=== PATIENT | female | born 2000 | race Caucasian/White ===

== ENCOUNTER 2020-05-24 05:32 | Emergency (ER) | payer BC, SELFPAY ==
[2020-05-24 05:37] VITALS: BP 115/50; PULSE 90; RESP 16; TEMP 36.8; O2SAT 98; BMI 21.1
--- NOTE | 2020-05-24 05:52 | ED_ITS ---
HPI - Eye Problem General Chief complaint: Eye Problems Stated complaint: EYE INFECTION Time Seen by Provider: 05/24/20 05:49 Source: patient Mode of arrival: ambulatory Limitations: no limitations History of Present Illness HPI Narrative: patient comes to emergency room complaining of left-sided eye pain. Patient states 2 nights ago she slept with her contacts, the next day her I was very dry, when she tried calling her contact lenses out, it felt like she had a small pinch in her left eye. Patient states that the pain has gradually been getting worse. Patient removed the contact lenses but the pain persisted. patient states that her vision remains within normal limits bilaterally MD chief complaint: eye pain, eye redness and eye injury Onset (ago): day(s) Onset description: gradual Duration: constant Location: left eye Eye Symptoms: burning, redness, pain, foreign body sensation, itching and photophobia Place: home Related Data Previous Rx's Medication Instructions Recorded ketorolac 1 drp OPHTHALMIC (EYE) QID #3 ml 05/24/20 ofloxacin 2 drp OPHTHALMIC (EYE) Q4H #10 ml 05/24/20 Allergies Allergy/AdvReac Type Severity Reaction Status Date / Time No Known Allergies Allergy Unverified 04/25/20 19:35 [No Known Allergies*] Review of Systems Review of Systems: Constitutional : No Weight loss, No Fever, No Chills, No Night Sweats, No Fatigue, No Malaise ENT/Mouth : No Hearing loss, No Ear Pain, No Nasal Congestion, No Sinus Pain, No Hoarseness, No sore throat, No Rhinorrhea, No Swallowing Difficulty Eyes: complaining of eye pain, swelling, redness, foreign body sensation, No Discharge, No Vision Changes Cardiovascular : No Chest Pain, No SOB, No Dyspnea on Exertion, No Orthopnea, No Edema, No Palpitations Respiratory : No Cough, No Sputum, No Wheezing, No Smoke Exposure, No Dyspnea Gastrointestinal : No Nausea, No Vomiting, No Diarrhea, No Constipation, No abdominal Pain, No Hematochezia, No Melena Genitourinary : no irregular bleeding, No Dysuria, No Urinary Frequency, No Hematuria, No Urinary Incontinence, No Urgency, No Flank Pain, No Urinary Flow Changes, No Hesitancy Musculoskeletal : No joint pain, No Myalgias, No Joint Swelling Skin : No Skin Lesions, No rash Neuro : No Weakness, No Numbness, No Paresthesias, No Loss of Consciousness, No Dizziness, No Headache Psych : No Anxiety/Panic, No Depression, No SI/HI/AH/VH, No Social Issues, Heme/Lymph: No Bruising, No Bleeding,No Lymphadenopathy Endocrine : No Polyuria, No Polydipsia, No Temperature Intolerance [facility] Social History Social History Advance Directives: No Advance Directives Information Provided: No Physical Exam Vital Signs: Vital Signs: Vital Signs Temp Pulse Resp BP Pulse Ox 05/24/20 05:37 98.3 F 90 16 115/50 L 98 Body Mass Index 21.1 Appearance: Alert. Oriented X3. No acute distress. Eyes: Pupils equal, round and reactive to light. left eye has conjunctiva injection, fluorescent stain test reveals a corneal abrasion in the middle of the eye. ENT: Pharynx normal. Neck: Normal inspection. Neck supple. No lymph nodes noted. No crepitus CVS: Normal heart rate and rhythm. Pulses normal. Normal S1 and S2 Respiratory: No respiratory distress. Breath sounds normal. No Wheezing. No rales Abdomen: Soft and nontender. No rigidity. No distention. good BS x4 Skin: Skin warm and dry. Normal skin color. Normal skin turgor. Extremities: No lower extremity edema. No lower extremity edema. No Lacerations. No Rash Neuro: Oriented X 3. No motor deficit. No sensory deficit. Moving all extermities. No slurred speech. MDM - Eye Problem MDM Narrative Medical decision making narrative: I discussed the physical exam with the patient, she has a corneal abrasion, patient is alert contact lens wear, instructed not to wear her contact lenses until she is cleared by Ophthalmology. Differential Diagnosis Differential diagnosis: Likely corneal abrasion, conjunctivitis and acute iritis Medical Records Attestation: I reviewed the patient's medical records. Discharge Plan Discharge Clinical Impression: Corneal abrasion Qualifiers: Encounter type: initial encounter Laterality: left Qualified Code(s): S05.02XA - Injury of conjunctiva and corneal abrasion without foreign body, left eye, initial encounter Patient Disposition: Home, Self-Care Instructions: Corneal Abrasion (ED) Additional Instructions: do not use contact lenses until you are cleared by Ophthalmology or your primary care physician. Please follow-up with your primary care physician tomorrow. If you have any worsening or new symptoms, please return to the emergency room or call 911 Prescriptions: New ofloxacin 0.3 % drops 2 drp ophthalmic (eye) Q4H Qty: 10 RF: 0 ketorolac 0.5 % drops 1 drp ophthalmic (eye) QID Qty: 3 RF: 0
[2020-05-24] MEDS: Tetracaine HCl/PF 0.5% Oph Sol 4 ML DROPS 3 DROP EYE-LEFT (06:01)
[2020-05-24] MEDS: Fluorescein Sodium STRIP 1 STRIP EYE-LEFT (06:02)
== END 2020-05-24 06:20 | disposition home or self-care (01) ==
PROVIDERS: Emergency Provider Emergency Medicine
DX: H18.822 Corneal disorder due to contact lens, left eye (principal); Z79.899 Other long term (current) drug therapy
CPT/HCPCS: 99283; 99284

== ENCOUNTER 2020-08-21 21:49 | Emergency (ER) | payer BC, SELFPAY ==
[2020-08-21 21:53] VITALS: BP 114/49; PULSE 81; RESP 16; TEMP 36.8; O2SAT 98; BMI 20.1
[2020-08-21 22:12] LABS: MANUAL DIFF FLAG NO
[2020-08-21 22:13] LABS: Basophils Absolute Auto 0.1 X10*3/uL (0.0-0.2); Basophils Percent Auto 0.8 % (0-2); Eosinophils Absolute Auto 0.3 X10*3/uL (0.0-0.4); Eosinophils Percent Auto 3.9 % (0-4); Hemoglobin 11.7 g/dl (12.0-16.0); Imm Gran Abs Auto 0.01 X10*3/uL (0.00-0.03); Imm Gran Pct Auto 0.1 % (0.0-0.4); Lymphocytes Absolute Auto 4.1 X10*3/uL (1.2-4.9); Lymphocytes Percent Auto 46.5 % (20-40); Mean Corpuscular HGB Conc 33.4 g/dl (31.0-35.0); Mean Corpuscular Volume 86.6 fL (80-98); Mean Platelet Volume 10.6 fL (9.4-12.3); Monocytes Absolute Auto 0.8 X10*3/uL (0.1-1.2); Monocytes Percent Auto 9.6 % (2-11); Neutrophils Absolute Auto 3.4 X10*3/uL (2.0-8.3); Neutrophils Percent Auto 39.1 % (45-73); Platelet Count 249 X10*3/uL (160-400); Red Blood Count 4.04 X10*6/uL (4.20-5.50); Red Cell Distribution Width 12.6 % (11.0-16.0); White Blood Count 8.8 X10*3/uL (4.8-10.8)
[2020-08-21 22:35] LABS: Alanine Aminotransferase 12 U/L (0-31); Albumin Level 4.6 g/dL (3.5-5.0); Alkaline Phosphatase 50 U/L (39-117); Anion Gap 13 (12-20); Aspartate Amino Transferase 22 U/L (5-31); Bilirubin Total 0.3 mg/dL (0.0-1.0); Blood Urea Nitrogen 13 mg/dL (9-16); Calcium 9.2 mg/dL (8.4-10.2); Carbon Dioxide 25 mmol/L (22-29); Chloride 106 mmol/L (96-108); Creatinine Clr Calc Pharmacy 105.5; Estimated Glomerular Filt Rate > 60; Glucose Random 87 mg/dL (60-115); Potassium 3.7 mmol/l (3.3-5.1); Sodium 140 mmol/L (135-145); Total Protein 7.3 g/dL (6.5-8.0)
--- NOTE | 2020-08-22 01:04 | ED_ITS ---
HPI - Skin/Abscess/Foreign Bdy General Chief complaint: Skin/Abscess/Foreign Body Stated complaint: infection? Time Seen by Provider: 08/22/20 01:01 Source: patient Mode of arrival: ambulatory Limitations: no limitations History of Present Illness MD complaint: rash Onset (ago): day(s) (few) Tetanus up to date: yes Location: back Severity: mild Quality: burning Pain Consistency: constant Relieving factors: none Exacerbating factors: none Context: other (possible reaction to a bra then area opened and increased redness) Associated symptoms: denies other symptoms Treatments prior to arrival: none Related Data Previous Rx's Medication Instructions Recorded ketorolac 1 drp OPHTHALMIC (EYE) QID #3 ml 05/24/20 ofloxacin 2 drp OPHTHALMIC (EYE) Q4H #10 ml 05/24/20 cephalexin 500 mg PO BID 7 Days #14 cap 08/22/20 mupirocin 1 appl TOPICAL BID 7 Days #15 g 08/22/20 Allergies Allergy/AdvReac Type Severity Reaction Status Date / Time No Known Allergies Allergy Verified 08/21/20 21:51 [No Known Allergies*] Review of Systems Review of Systems: Constitutional : No Fever, No Chills ENT/Mouth : No sore throat, No Rhinorrhea Eyes: No Eye Pain, No Swelling, No Redness Cardiovascular : No Chest Pain, No SOB Respiratory : No Cough, No Sputum Gastrointestinal : No Nausea, No Vomiting, No Diarrhea, No abdominal Pain Genitourinary : No Dysuria, No Hematuria Musculoskeletal : No joint pain, No Myalgias, No Joint Swelling Skin : No Skin Lesions, positive skin rash Neuro : No Weakness, No Numbness, No Headache Psych : No Anxiety, No Depression Heme/Lymph: No Bruising, No Bleeding,No Lymphadenopathy Endocrine : No Polyuria, No Polydipsia All other systems reviewed and are negative PMFSH Past Medical History Attestation statement: The following information was validated with the patient. Medical History No known health problems Social History Social History Alcohol intake: never Smoking Status: Never smoker Advance Directives: No Advance Directives Information Provided: No Physical Exam Vital Signs: Vital Signs: Last Vital Signs Temp 98.3 F 08/21/20 21:53 Pulse 81 08/21/20 21:53 Resp 16 08/21/20 21:53 BP 114/49 L 08/21/20 21:53 Pulse Ox 98 08/21/20 21:53 Body Mass Index 20.1 Appearance: Alert. Oriented X3. No acute distress. Eyes: Pupils equal, round and reactive to light. ENT: Pharynx normal. Neck: Normal inspection. Neck supple. CVS: Normal heart rate and rhythm. Pulses normal. Respiratory: No respiratory distress. Breath sounds normal. Abdomen: Soft and nontender. Back: R scapula erythema mild erythema and warmth 3cm - scabbed area, no fluctuance or purulence, fading small red raised bumps on that region as well Skin: Skin warm and dry. Normal skin color. Normal skin turgor. Extremities: No lower extremity edema. No calf ttp Neuro: Oriented X 3. No motor deficit. No sensory deficit. MDM - Skin/Abscess/Foreign Bdy MDM Narrative Medical decision making narrative: 20 yo female with likely recent contact dermatitis that then scabbed over and now has mild cellulitis no systemic symptoms will treat with mupirocin and cephalexin - given precautions to return Lab Data Result diagrams: 08/21/20 22:06 08/21/20 22:06 Labs: Lab Results 08/21/20 08/21/20 Range/Units 22:06 22:06 WBC 8.8 (4.8-10.8) X10*3/uL RBC 4.04 L (4.20-5.50) X10*6/uL Hgb 11.7 L (12.0-16.0) g/dl Hct 35.0 L (37-47) % MCV 86.6 (80-98) fL MCH 29.0 (27.0-33.0) pg MCHC 33.4 (31.0-35.0) g/dl RDW 12.6 (11.0-16.0) % Plt Count 249 (160-400) X10*3/uL MPV 10.6 (9.4-12.3) fL Immature Gran % (Auto) 0.1 (0.0-0.4) % Neut % (Auto) 39.1 L (45-73) % Lymph % (Auto) 46.5 H (20-40) % [place] % (Auto) 9.6 (2-11) % Eos % (Auto) 3.9 (0-4) % Baso % (Auto) 0.8 (0-2) % Lymph # (Auto) 4.1 (1.2-4.9) X10*3/uL [place] # (Auto) 0.8 (0.1-1.2) X10*3/uL Eos # (Auto) 0.3 (0.0-0.4) X10*3/uL Baso # (Auto) 0.1 (0.0-0.2) X10*3/uL Abs Immat Gran (auto) 0.01 (0.00-0.03) X10*3/uL Absolute Neuts (auto) 3.4 (2.0-8.3) X10*3/uL Absolute Nucleated RBC 0.000 (0.0-0.012) X10*3/uL Nucleated RBC % (auto) 0.0 (0.0-0.2) /100WBC Sodium 140 (135-145) mmol/L Potassium 3.7 (3.3-5.1) mmol/l Chloride 106 (96-108) mmol/L Carbon Dioxide 25 (22-29) mmol/L Anion Gap 13 (12-20) BUN 13 (9-16) mg/dL Creatinine 0.66 (0.5-1.4) mg/dL Estim Creat Clear Calc 105.5 Estimated GFR > 60 Random Glucose 87 (60-115) mg/dL Calcium 9.2 (8.4-10.2) mg/dL Total Bilirubin 0.3 (0.0-1.0) mg/dL AST 22 (5-31) U/L ALT 12 (0-31) U/L Alkaline Phosphatase 50 (39-117) U/L Total Protein 7.3 (6.5-8.0) g/dL Albumin 4.6 (3.5-5.0) g/dL Discharge Plan Discharge Clinical Impression: Cellulitis Qualifiers: Site of cellulitis: trunk Site of cellulitis of trunk: back Qualified Code(s): L03.312 - Cellulitis of back [any part except buttock] Patient Disposition: Home, Self-Care Instructions: Cellulitis (ED) Additional Instructions: return to ED for any worsening symptoms or concerns Prescriptions: New mupirocin 2 % ointment 1 appl topical BID 7 Days Qty: 15 RF: 0 cephalexin 500 mg capsule 500 mg PO BID 7 Days Qty: 14 RF: 0 No Action ofloxacin 0.3 % drops 2 drp ophthalmic (eye) Q4H Qty: 10 RF: 0 ketorolac 0.5 % drops 1 drp ophthalmic (eye) QID Qty: 3 RF: 0
[2020-08-22] MEDS: cephALEXin 500 MG CAPSULE PO (01:16)
[2020-08-22 01:20] VITALS: BP 118/64; PULSE 64; RESP 16; O2SAT 98
== END 2020-08-22 01:21 | disposition home or self-care (01) ==
LOC: HO.ED 08-22 01:11
PROVIDERS: Emergency Provider Emergency Medicine
DX: L03.312 Cellulitis of back [any part except buttock and flank] (principal); Z79.899 Other long term (current) drug therapy
CPT/HCPCS: 36415; 80053; 85025; 99283; 99284

== ENCOUNTER 2020-10-09 09:48 | Outpatient (REF) | payer BC, SELFPAY ==
[2020-10-09 10:23] LABS: UPreg QC Valid YES; Urine Pregnancy POSITIVE (NEGATIVE)
== END 2020-10-09 09:49 | disposition home or self-care (01) ==
LOC: HO.LAB 09:48
PROVIDERS: PCP Internal Medicine; Visit Provider Internal Medicine
DX: N91.2 Amenorrhea, unspecified (principal)
CPT/HCPCS: 81025

== ENCOUNTER → 2020-10-16 09:21 | Outpatient (BNVA) | payer BC, SELFPAY | PROVIDERS: PCP Internal Medicine; Visit Provider Advanced Practice Midwife | DX: Z32.01 Encounter for pregnancy test, result positive (principal) | CPT/HCPCS: 81025 ==

== ENCOUNTER 2023-08-25 08:36 | Outpatient (AMB) | payer OTHER, SELFPAY ==
[2023-08-25 08:41] VITALS: BP 110/70; PULSE 99; O2SAT 70; BMI 26.2
--- NOTE | 2023-08-25 08:41 | A.OFFPC_ITS ---
Vital Signs 08/25/23 08:41 Height 5 ft 2 in Weight 143 lb BMI 26.2 BP 110/70 Blood Pressure Location Lt brachial Position Sitting Pulse 99 Pulse Source Pulse Oximeter Pulse Oximetry (%) 70 L Oxygen Delivery Method Room Air Intake Visit Reasons: Hand swollen/ referral for specialist Staffing And Scheduling Coordinator Required: No Grocery Cashier: Not Required per policy Accompanied by: Self / Same As Patient Allergies No Known Allergies [No Known Allergies*] Allergy (Verified 08/25/23 08:42) Medication List - Last Reconciled 08/25/23 by Nathaniel Sun MD No Known Home Meds Tobacco use date assessed: 08/25/23 Dental Screening Dental Screen Date: 08/25/23 Did you have a dental visit in the last 12 months?: Yes Did you have a dental problem in the last 6 months where you did not have access to dental care?: No Was dental information given to patient?: Patient has dentist HPI Hand swollen/ referral for specialist HPI Details right hand pain and remote history of trauma [facility] Medical History (Updated 02/10/23 @ 16:41 by Himanshu Kaufman MD) Anxiety No known health problems Family History Mother No problems noted. Father No problems noted. Social History Housing: Condominium Alcohol intake: current Alcohol intake frequency: holidays/special occasions only Patient Tobacco Use Status: Never used Tobacco e-Cigarette/Vaping Use: Never Used Second Hand Smoke Exposure: No service: No Current occupational status: employed Cognitive needs: No Hearing needs: No Vision needs: Yes Questionnaire PHQ-9 Over the last 2 weeks, how often have you been bothered by any of the following problems? 1. Little interest or pleasure in doing things: not at all 2. Feeling down, depressed, or hopeless: not at all 3. Trouble falling or staying asleep, or sleeping too much: not at all 4. Feeling tired or having little energy: not at all 5. Poor appetite or overeating: not at all 6. Feeling bad about yourself - or that you are a failure or have let yourself or your family down: not at all 7. Trouble concentrating on things, such as reading the newspaper or watching television: not at all 8. Moving or speaking so slowly that other people could have noticed. Or the opposite - being so fidgety or restless that you have been moving around a lot more than usual: not at all 9. Thoughts that you would be better off or of hurting yourself in some way: not at all Total score: 0 Depression Screening Interpretation: Negative Depression Screening Done: Yes 43660 - PHQ-9 Billing: Yes Source: Developed by Drs. Aric Jhaveri, Blossom Wilson, Rock Sandoval and colleagues, with an educational lety from [employer]. Thrive Questionnaire Date Thrive assessed: 08/25/23 I am a: Patient What is your living situation today?: I have a steady place to live Within the past 12 months, did the food you bought not last and you didn't have the money to get more?: Never true Within the past 12 months, did you worry whether your food would run out before you got money to buy more?: Never true Do you have trouble paying for medicines?: No Do you have trouble getting transportation to medical appointments?: No Do you have trouble paying your heating and electricity bill?: No Do you have trouble taking care of your child, family member or friend?: No Do you have trouble with day-to-day activities such as bathing, preparing meals, shopping, managing finances, etc.?: No Are you currently unemployed and looking for a job?: No Are you interested in more education?: No Please select the resources that you would like help with: None AUDIT C Alcohol Use Questionnaire (AUDIT-C) 1. How often do you have a drink containing alcohol?: Never Total Score: 0 LEO-7 AMB Questionnaire LEO-7 Date LEO - 7 assessed: 08/25/23 Feeling nervous, anxious, or on edge: 1 = Several days Not being able to stop or control worryin = Several days Worrying too much about different things: 0 = Not at all Trouble relaxin = Not at all Being so restless that it is hard to sit still: 0 = Not at all Becoming easily annoyed or irritable: 0 = Not at all Feeling afraid as if something awful might happen: 0 = Not at all Total LEO-7 score (0-4 normal; 5-9 mild; 10-14 moderate; 15-21 severe): 2 Source: Developed by Drs. Aric Jhaveri, Blossom Wilson, Rock Sandoval and colleagues, with an educational lety from [employer]. LEO-7 Assessment Billing LEO-7 Assessment Tool: LEO-7 Assessment 32042 Review of Systems Const Denies chills, Denies headache(s) and Denies weight loss ENT Denies headache(s) Card Denies chest pain, Denies syncope, Denies irregular heart rhythm and Denies dyspnea Resp Denies chest congestion, Denies cough and Denies dyspnea GI Denies abdominal pain, Denies change in stool character, Denies nausea and Denies vomiting Musc Denies deformity and Denies joint swelling Neuro Denies syncope and Denies headache(s) Physical exam (Primary Care) Vital Signs: Last Vital Signs Pulse 99 08/25/23 08:41 BP 110/70 08/25/23 08:41 Pulse Ox 70 L 08/25/23 08:41 Oxygen Delivery Method Room Air 08/25/23 08:41 BMI result Body Mass Index 26.2 Tobacco/Smoking Status: Tobacco use Status Tobacco use date assessed 08/25/23 08/25/23 08:47 Patient Tobacco Use Status Never used Tobacco 08/25/23 08:47 e-Cigarette/Vaping Use Never Used 08/25/23 08:47 PHQ-9: PHQ-9 Score PHQ-9: Total score 0 08/25/23 08:47 Depression Screening Interpretation: Negative Thrive Assessment: Date of Thrive Assessment Date Thrive assessed 08/25/23 08/25/23 08:47 Const General: cooperative, comfortable, no acute distress and alert Neck Neck: Yes no lymphadenopathy Thyroid: Thyroid normal Resp Effort & Inspection: normal respiratory effort Auscultation: clear to auscultation bilaterally Percussion: percussion normal Cardio Jugular venous distension: no JVD Palpation: normal PMI Rate: regular rate Rhythm: regular rhythm Heart sounds: S1 normal heart sound present and S2 normal heart sound present GI Inspection: Yes normal to inspection Palpation (GI): No hepatosplenomegaly present Skin General skin exam: no rashes or lesions noted Extrem General: Yes no clubbing, cyanosis or edema Assessment and Plan Assessment & Plan (1) Hand pain: Code(s): M79.643 - Pain in unspecified hand Plan: xr Orders: Orders Comprehensive [place]. Panel Fast Today N28.9 - Disorder of kidney and ureter, unspecified, Z32.01 - Encounter for test, result positive Complete Blood Count Auto Diff Today D64.9 - Anemia, unspecified, Z32.01 - Encounter for test, result positive Thyroid Stimulating Hormone Today E03.9 - Hypothyroidism, unspecified, Z32.01 - Encounter for test, result positive Vitamin D 25-OH Total Today Z13.9 - Encounter for screening, unspecified, Z32.01 - Encounter for test, result positive XR hand RT 2V Today M79.643 - Pain in unspecified hand, Z32.01 - Encounter for test, result positive Lipid Panel Today E78.5 - Hyperlipidemia, unspecified, Z32.01 - Encounter for test, result positive Referrals Orthopedics Referral M79.643 - Pain in unspecified hand Coding Level of Care Code Est Pt Level 3 (34463) Diagnoses Hand pain M79.643 Additional Codes LEO-7 Assessment Billing - LEO-7 Assessment Tool: LEO-7 Assessment 21762 ([id number])
== END 2023-08-25 09:12 | disposition home or self-care (01) ==
PROVIDERS: PCP Internal Medicine; Visit Provider Internal Medicine
DX: M79.643 Pain in unspecified hand (principal)
CPT/HCPCS: 99213

== ENCOUNTER 2023-10-06 10:47 | Outpatient (AMB) | payer OTHER, SELFPAY ==
[2023-10-06 10:50] VITALS: BMI 26.2
--- NOTE | 2023-10-06 10:50 | A.OFFVIS_ITS ---
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 Mainly on her dorsum MCP aspect of her ring and pinky. She explains she has discoloration, bruising with use of hand. Worse with cold weather. Hx of severed tendon in ring finger about 4 years ago after punching a window. Seen last with her PCP who referred patient to Orthopedics specialist for further evaluation. 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 She also complains of occasional discoloration and bruising in this area. She denies any recent injury. She also complains of numbness and tingling in the small and ring fingers that is happening just about every day, intermittent but daily. Her hand was not painful today in clinic. However she says her hand is in pain 80% of the time. She was somewhat anxious and tearful today when discussing her symptoms. She says she has a hx of severed tendons over her right 4th MCP joint, after she punched a window in ~2019. She denies proceeding with surgery to repair this. 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 [facility] Medical History (Updated 10/06/23 @ 11:30 by Merritt Kaba) Anxiety No known health problems Family History Mother No problems noted. Father No problems noted. Social History (Updated 10/06/23 @ 10:[address] 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 Cognitive needs: No Hearing needs: No Vision needs: Yes Review of Systems Const All systems reviewed & are unremarkable except as noted in HPI and below Physical Exam Vital Signs: BMI result Body Mass Index 26.2 Const General: cooperative, healthy appearing and no acute distress Orientation/consciousness: patient oriented x3 HEENT Head: Yes normocephalic and Yes atraumatic Eyes EOM: EOMs intact bilaterally Resp Effort & Inspection: normal respiratory effort and able to speak in complete sentences Cardio Jugular venous distension: no JVD Skin General skin exam: turgor normal Rashes: no rashes Neuro General: patient oriented x3 Extrem Other: Evaluation of Right Upper Extremity: The patient is alert, oriented, and in no acute distress She became tearful when I told her that I did not see anything worrisome at this time, or anything that needed surgery. Neuro: Median, Ulnar, Radial nerves motor and sensory intact and sensation is normal to the tips of all digits No thenar or intrinsic wasting. Good finger cross and APB muscle belly firing. Vascular: Cap refill brisk Regarding her right hand, she has a well-healed scar over the dorsal aspect of the right 4th MCP joint. The scar is well healed with no erythema swelling or other issues. She shows me how when she extends the fingers of her right hand she has some mild swelling on either side of the 4th metacarpal head. To me this looks like a little bit of subcutaneous fat that has just a little more prominent on either side. There is no warmth or erythema. There are no cystic masses. The area is completely nontender today. She can bring all of her fingers close to a fist, and at this point the slightly puffy areas are completely not visible. Also when she brings her fingers close to a fist the extensor mechanism stays centralized with no subluxation. All motion is completely painless. No pain with longitudinal loading. When she brings all of her fingers back into extension her ring finger PIP joint initially is lacking about 10 degrees from full extension. However, when I ask her to continue to fully extend the digit she is able to actively fully extend the ring finger PIP joint. Radiographs: 3 views of the right hand were taken and viewed by me today in clinic. They show no fractures, dislocations, or arthritic changes Psych Appearance: grossly normal Affect: normal affect Attitude: cooperative Assessment & Plan Assessment & Plan (1) Numbness of right hand: Code(s): R20.0 - Anesthesia of skin (2) Right hand pain: Code(s): M79.641 - Pain in right hand (3) Anxiety: Comment: 40 min reviewing chart evaluating patient and documenting Code(s): F41.9 - Anxiety disorder, unspecified Plan Assessment & Plan: 1. Right hand pain Dorsal 4th MCP joint Etiology unclear & radiographs unremarkable Full painless active range of motion, and no pain or tenderness today in clinic She was tearful and disappointed that I did not have an answer why she gets her pain She had no pain, swelling, or erythema today, and full active ROM She left considering seeking a second opinion for this 2. Right hand numbness In the ulnar nerve distribution Symptoms intermittent, but daily I ordered a NCS to assess for peripheral nerve compression She will follow up when completed for review Please note that greater than 30 minutes was spent with this patient going over the history, evaluating the patient and radiographs, formulating possible treatment options, discussing them with the patient, and documenting the visit. Scribed for Minda Sullivan MD by Merritt Kaba, rn medical surgical, on 10/06/23 at 11:15 AM, EST. Orders: Orders XR hand RT min 3V Today M79.641 - Pain in right hand NE nerve conduction velocity Today R20.0 - Anesthesia of skin, R20.2 - Paresthesia of skin Coding Level of Care Code New Pt Level 3 (55490) Diagnoses Numbness of right hand R20.0 Right hand pain M79.641 Anxiety F41.9
== END 2023-10-06 11:51 | disposition home or self-care (01) ==
PROVIDERS: PCP Internal Medicine; Visit Provider Orthopaedic Surgery
DX: M79.641 Pain in right hand (principal); R20.0 Anesthesia of skin
CPT/HCPCS: 99203

== ENCOUNTER 2023-10-06 10:47 | Outpatient (REF) | payer OTHER, SELFPAY ==
--- NOTE | ~2023-10-06 | XR_ITS ---
EXAMINATION: XR HAND, RIGHT CLINICAL INFORMATION: Right hand COMPARISON: None available. TECHNIQUE: PA, lateral, and oblique views of the right hand. FINDINGS: The bones and soft tissues are normal. No fracture. Alignment is anatomic. Joint spaces are maintained. No erosions or soft tissue calcifications. XR/XR hand RT min 3V IMPRESSION: Normal right hand.
== END 2023-10-06 10:48 | disposition home or self-care (01) ==
LOC: HO.HOSX 10:47
PROVIDERS: PCP Internal Medicine; Visit Provider Orthopaedic Surgery
DX: R20.0 Anesthesia of skin (principal); M79.641 Pain in right hand; F41.9 Anxiety disorder, unspecified
CPT/HCPCS: 73130

== ENCOUNTER 2023-10-21 08:22 | Outpatient (REF) | payer OTHER, SELFPAY ==
--- NOTE | 2023-10-21 | EMG_ITS ---
Right median and ulnar motor and sensory studies were performed. Right median and lateral antecubital brachial and radial sensory studies were performed and paraspinal muscles were tested with needle. IMPRESSION: This is an unremarkable study with no significant finding to suggest entrapment neuropathy, plexopathy, or radiculopathy. MD ASHLEY Sotelo/FLORENTIN / [id number]
== END 2023-10-21 08:23 | disposition home or self-care (01) ==
LOC: HO.NEURO 08:22
PROVIDERS: PCP Internal Medicine; Visit Provider Orthopaedic Surgery
DX: R20.0 Anesthesia of skin (principal); R20.2 Paresthesia of skin
CPT/HCPCS: 95886; 95910

== ENCOUNTER 2023-10-22 09:17 | Outpatient (AMB) | payer OTHER, SELFPAY ==
[2023-10-22 09:18] VITALS: BP 122/80; PULSE 87; O2SAT 98; BMI 25.6
--- NOTE | 2023-10-22 09:18 | A.OFFPC_ITS ---
Vital Signs 10/22/23 09:18 Height 5 ft 2 in Weight 140 lb BMI 25.6 BP 122/80 Blood Pressure Location Lt brachial Position Sitting Pulse 87 Pulse Source Pulse Oximeter Pulse Oximetry (%) 98 Oxygen Delivery Method Room Air Intake Visit Reasons: right arm pain/FMLA Sterile Processing Tech Required: No Spooler: Not Required per policy Accompanied by: Self / Same As Patient Allergies No Known Allergies [No Known Allergies*] Allergy (Verified 10/22/23 09:18) Medication List - Last Reconciled 10/25/23 by Nathaniel Sun MD cephalexin 500 mg PO TID ibuprofen 600 mg PO TID naproxen (EC-Naproxen) 500 mg PO BID PRN Tobacco use date assessed: 08/25/23 HPI right arm pain/FMLA HPI Details pain and numbness right hand and arm and is seeing ortho [facility] Medical History (Updated 10/06/23 @ 11:30 by Merritt Kaba) Anxiety No known health problems Family History (Updated 10/22/23 @ 09:19 by Duncan Hogan [facility]) Mother No problems noted. Father No problems noted. 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 Aric Jhaveri, Blossom Wilson, Rock Sandoval and colleagues, with an educational lety from [employer]. Review of Systems Const Denies chills, Denies headache(s) and Denies weight loss ENT Denies headache(s) Card Denies chest pain, Denies syncope, Denies irregular heart rhythm and Denies dyspnea Resp Denies chest congestion, Denies cough and Denies dyspnea GI Denies abdominal pain, Denies change in stool character, Denies nausea and Denies vomiting Musc Denies deformity and Denies joint swelling Neuro Denies syncope and Denies headache(s) Physical exam (Primary Care) Vital Signs: Last Vital Signs Pulse 87 10/22/23 09:18 BP 122/80 10/22/23 09:18 Pulse Ox 98 10/22/23 09:18 Oxygen Delivery Method Room Air 10/22/23 09:18 BMI result Body Mass Index 25.6 Tobacco/Smoking Status: Tobacco use Status Tobacco use date assessed 08/25/23 10/22/23 09:19 Patient Tobacco Use Status Never used Tobacco 10/22/23 09:19 e-Cigarette/Vaping Use Never Used 10/22/23 09:19 Thrive Assessment: Date of Thrive Assessment Date Thrive assessed 08/25/23 10/22/23 09:19 Const General: cooperative, comfortable, no acute distress and alert Neck Neck: Yes no lymphadenopathy Thyroid: Thyroid normal Resp Effort & Inspection: normal respiratory effort Auscultation: clear to auscultation bilaterally Percussion: percussion normal Cardio Jugular venous distension: no JVD Palpation: normal PMI Rate: regular rate Rhythm: regular rhythm Heart sounds: S1 normal heart sound present and S2 normal heart sound present GI Inspection: Yes normal to inspection Palpation (GI): No hepatosplenomegaly present Skin General skin exam: no rashes or lesions noted Extrem General: Yes no clubbing, cyanosis or edema Assessment and Plan Assessment & Plan (1) Right hand pain: Code(s): M79.641 - Pain in right hand Plan: cont with ortho Coding Level of Care Code Est Pt Level 3 (23168) Diagnoses Right hand pain M79.641
== END 2023-10-22 10:49 | disposition home or self-care (01) ==
PROVIDERS: PCP Internal Medicine; Visit Provider Internal Medicine
DX: M79.641 Pain in right hand (principal)
CPT/HCPCS: 99213

== ENCOUNTER 2023-10-25 15:03 | Outpatient (AMB) | payer OTHER, SELFPAY ==
--- NOTE | 2023-10-25 15:09 | A.OFFVIS_ITS ---
Intake Intake Visit Reasons: EP, EMG follow up, 2nd opinion R hand numbness Intake Note: Linda is a 23 year old right hand dominant woman who presents today for a second opinion of pain and swelling over the dorsal aspect of the right 4th MCP joint that began about 4 months ago. She also complains of occasional discoloration and bruising in this area. She denies any recent injury. She also complains of numbness and tingling in the small and ring fingers that is happening just about every day, intermittent but daily. She says she has a hx of severed tendons over her right 4th MCP joint, after she punched a window in ~2019. She denies proceeding with surgery to repair this. 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 Linda is a 23 year old right hand dominant woman who presents today for a seco nd opinion of pain and swelling over the dorsal aspect of the right 4th MCP joint that began about 4 months ago. She also complains of occasional discoloration and bruising in this area. She denies any recent injury. She also complains of numbness and tingling in the small and ring fingers that is happening just about every day, intermittent but daily. She says she has a hx of severed tendons over her right 4th MCP joint, after she punched a window in ~2019. She denies proceeding with surgery to repair this. 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 She was placed on FMLA by her PCP due to her symptoms. Since her visit with Dr. Sullivan she was seen with a Regrinder Operator who prescribed her antibiotics, this is helping the severity of her symptoms. however she still complains of pain and swelling over the 3rd and 4th MC. She was told that she may have cysts but unsure the nature of cyst. She has an ultrasound scheduled but is curious if this can be completed at [facility] rather than [facility] EMG done 10/25/23 IMPRESSION: This is an unremarkable study with no significant finding to suggest entrapment neuropathy, plexopathy, or radiculopathy. Allergies No Known Allergies [No Known Allergies*] Allergy (Verified 10/22/23 09:18) HPI EP, EMG follow up, 2nd opinion R hand numbness HPI Details Linda is a 23 year old right hand dominant woman who presents today for a second opinion of pain and swelling over the dorsal aspect of the right 4th MCP joint that began about 4 months ago. She also complains of occasional discoloration and bruising in this area. She denies any recent injury. She also complains of numbness and tingling in the small and ring fingers that is happening just about every day, intermittent but daily. She says she has a hx of severed tendons over her right 4th MCP joint, after she punched a window in ~2019. She denies proceeding with surgery to repair this. 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 She was placed on FMLA by her PCP due to her symptoms. Since her visit with Dr. Sullivan she was seen with a Regrinder Operator who prescribed her antibiotics, this is helping the severity of her symptoms. however she still complains of pain and swelling over the 3rd and 4th MC. She was told that she may have cysts but unsure the nature of cyst. [facility] Medical History (Updated 10/25/23 @ 15:32 by Manuel Sol MD) Anxiety No known health problems Family History (Updated 10/22/23 @ 09:19 by Duncan Hogan [facility]) Mother No problems noted. Father No problems noted. 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 This results in a mild hyperflexion of MCP. There are no palpble cystic masses. Psych Appearance: grossly normal Affect: normal affect Attitude: cooperative Results Reviewed Results Reviewed: EMG done 10/25/23 IMPRESSION: This is an unremarkable study with no significant finding to suggest entrapment neuropathy, plexopathy, or radiculopathy. Assessment & Plan Assessment & Plan (1) Localized swelling on right hand: Code(s): R22.31 - Localized swelling, mass and lump, right upper limb Plan: This is a 23 yo old with concerns over right hand swelling. It has improved with antibiotics which is confusing. MRI to assess. Orders: Orders MR hand RT wo con 10/25/23 R22.31 - Localized swelling, mass and lump, right upper limb Coding Level of Care Code Est Pt Level 3 (91984) Diagnoses Localized swelling on right hand R22.31
== END 2023-10-25 15:48 | disposition home or self-care (01) ==
PROVIDERS: PCP Internal Medicine; Visit Provider Orthopaedic Surgery
DX: R22.31 Localized swelling, mass and lump, right upper limb (principal)
CPT/HCPCS: 99213

== ENCOUNTER 2023-11-01 10:18 | Outpatient (REF) | payer OTHER, SELFPAY ==
[2023-11-01 14:15] LABS: Rheumatoid Factor < 13.0 IU/mL (<15.0)
[2023-11-01 14:40] LABS: Erythrocyte Sedimentation Rate 7 MM/HR (0-20)
[2023-11-04 21:03] LABS: Anti Nuclear Antibody Screen POSITIVE (NEGATIVE)
== END 2023-11-01 10:19 | disposition home or self-care (01) ==
LOC: HO.HMGCLDS 10:18
PROVIDERS: PCP Internal Medicine; Visit Provider Physician Assistant
DX: M79.10 Myalgia, unspecified site (principal); L53.8 Other specified erythematous conditions
CPT/HCPCS: 36415; 85652; 86038; 86039; 86431

== ENCOUNTER 2023-11-18 11:18 | Outpatient (AMB) | payer OTHER, SELFPAY ==
[2023-11-18 11:22] VITALS: BP 120/78; PULSE 77; O2SAT 98; BMI 26.0
--- NOTE | 2023-11-18 11:22 | A.OFFPC_ITS ---
Vital Signs 11/18/23 11:22 Height 5 ft 2 in Weight 142 lb BMI 26.0 BP 120/78 Blood Pressure Location Lt brachial Position Sitting Pulse 77 Pulse Source Pulse Oximeter Pulse Oximetry (%) 98 Oxygen Delivery Method Room Air Intake Visit Reasons: discuss plan/extend leave Air Conditioning Equipment Mechanic Required: No Accompanied by: Self / Same As Patient Allergies No Known Allergies [No Known Allergies*] Allergy (Verified 11/18/23 11:23) Medication List - Last Reconciled 11/22/23 by Nathaniel Sun MD ibuprofen 600 mg PO TID naproxen (EC-Naproxen) 500 mg PO BID PRN Tobacco use date assessed: 08/25/23 Dental Screening Dental Screen Date: 08/25/23 HPI discuss plan/extend leave HPI Details has right hand pain and needs an extension of her oow note until she sees the specialist [facility] Medical History (Updated 10/25/23 @ 15:32 by Manuel Sol MD) Anxiety No known health problems Surgical History (Updated 11/18/23 @ 11:24 by Jason Portillo Roxana) No pertinent past surgical history Family History (Updated 10/22/23 @ 09:19 by Duncan Hogan Roxana) Mother No problems noted. Father No problems noted. 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 Aric Jhaveri, Blossom Wilson, Rock Sandoval and colleagues, with an educational lety from [employer]. Review of Systems Const Denies chills, Denies headache(s) and Denies weight loss ENT Denies headache(s) Card Denies chest pain, Denies syncope, Denies irregular heart rhythm and Denies dyspnea Resp Denies chest congestion, Denies cough and Denies dyspnea GI Denies abdominal pain, Denies change in stool character, Denies nausea and Denies vomiting Musc Denies deformity and Denies joint swelling Neuro Denies syncope and Denies headache(s) Physical exam (Primary Care) Vital Signs: Last Vital Signs Pulse 77 11/18/23 11:22 BP 120/78 11/18/23 11:22 Pulse Ox 98 11/18/23 11:22 Oxygen Delivery Method Room Air 11/18/23 11:22 BMI result Body Mass Index 26.0 Tobacco/Smoking Status: Tobacco use Status Tobacco use date assessed 08/25/23 11/18/23 11:27 Patient Tobacco Use Status Never used Tobacco 11/18/23 11:27 e-Cigarette/Vaping Use Never Used 11/18/23 11:27 Thrive Assessment: Date of Thrive Assessment Date Thrive assessed 08/25/23 11/18/23 11:27 Const General: cooperative, comfortable, no acute distress and alert Neck Neck: Yes no lymphadenopathy Thyroid: Thyroid normal Resp Effort & Inspection: normal respiratory effort Auscultation: clear to auscultation bilaterally Percussion: percussion normal Cardio Jugular venous distension: no JVD Palpation: normal PMI Rate: regular rate Rhythm: regular rhythm Heart sounds: S1 normal heart sound present and S2 normal heart sound present GI Inspection: Yes normal to inspection Palpation (GI): No hepatosplenomegaly present Skin General skin exam: no rashes or lesions noted Extrem General: Yes no clubbing, cyanosis or edema Assessment and Plan Assessment & Plan (1) Right hand pain: Code(s): M79.641 - Pain in right hand Plan: note extended 2 weeks Coding Level of Care Code Est Pt Level 3 (11563) Diagnoses Right hand pain M79.641
== END 2023-11-18 11:55 | disposition home or self-care (01) ==
PROVIDERS: PCP Internal Medicine; Visit Provider Internal Medicine
DX: M79.641 Pain in right hand (principal)
CPT/HCPCS: 99213

== ENCOUNTER 2023-11-29 08:42 | Outpatient (REF) | payer OTHER, SELFPAY ==
--- NOTE | ~2023-11-29 | MR_ITS ---
EXAMINATION: MR HAND WITHOUT CONTRAST, RIGHT CLINICAL INFORMATION: Right hand pain, swelling, numbness, lump/mass. COMPARISON: Right hand radiographs dated 10/06/2023. TECHNIQUE: Multisequence MR imaging of the right hand was obtained without contrast on a high-field strength scanner. FINDINGS: BONE: No acute fracture or dislocation. Normal carpal alignment. No marrow edema or evidence of acute osseous injury. No concerning lytic or blastic osseous lesion. Grossly intact articular cartilage, however, evaluation is limited on large [id number] imaging. MUSCLES/TENDONS: The visualized flexor and extensor tendons are intact. No transverse tendon tear or tendon retraction. No muscle edema or evidence of acute injury. LIGAMENTS: Grossly intact collateral ligaments. SOFT TISSUES: No discrete soft tissue mass or fluid collection. No edema. No focal soft tissue swelling. No significant joint effusion. MR/MR hand RT wo con IMPRESSION: Unremarkable examination.
== END 2023-11-29 08:43 | disposition home or self-care (01) ==
LOC: HO.MRI 08:42
PROVIDERS: PCP Internal Medicine; Visit Provider Orthopaedic Surgery
DX: R22.31 Localized swelling, mass and lump, right upper limb (principal)
CPT/HCPCS: 73218

== ENCOUNTER 2023-11-30 12:57 | Outpatient (AMB) | payer OTHER, SELFPAY ==
[2023-11-30 12:58] VITALS: BP 112/80; PULSE 67; O2SAT 98; BMI 25.1
--- NOTE | 2023-11-30 12:58 | MHC.PC.OV ---
Vital Signs 11/30/23 12:58 Height 5 ft 2 in Weight 137 lb BMI 25.1 BP 112/80 Blood Pressure Location Lt brachial Position Sitting Pulse 67 Pulse Source Pulse Oximeter Pulse Oximetry (%) 98 Oxygen Delivery Method Room Air Intake Visit Reasons: Annual Exam Intake Note: pt is here for a physical and is requesting to be put on control Cinema Or Theatre Manager Required: No Machine Stapler: Not Required per policy Accompanied by: Self / Same As Patient Allergies No Known Allergies [No Known Allergies*] Allergy (Verified 11/30/23 12:59) Medication List - Last Reconciled 12/01/23 by Nathaniel Sun MD ibuprofen 600 mg PO TID naproxen (EC-Naproxen) 500 mg PO BID PRN Tobacco use date assessed: 08/25/23 Dental Screening Dental Screen Date: 08/25/23 HPI Annual Exam HPI Details healthy [facility] Medical History (Updated 12/01/23 @ 08:50 by Nathaniel Sun MD) Anxiety No known health problems Surgical History (Updated 11/18/23 @ 11:24 by Jason Portillo Roxana) No pertinent past surgical history Family History (Updated 10/22/23 @ 09:19 by Duncan Hogan Roxana) Mother No problems noted. Father No problems noted. Social History (Updated 10/06/23 @ 10:59 by Mikaela Reeves 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 Aric Jhaveri, Blossom Wilson, Rock Sandoval and colleagues, with an educational lety from [employer]. Review of Systems Const Denies chills, Denies fatigue, Denies headache(s) and Denies weight loss Eyes Denies change in vision, Denies diplopia and Denies eye pain ENT Denies vertigo, Denies dizziness, Denies headache(s) and Denies nasal discharge Card Denies chest pain, Denies rapid heart rate and Denies dyspnea on exertion Resp Denies chest congestion, Denies cough, Denies pain with cough and Denies dyspnea on exertion GI Denies abdominal pain, Denies hematochezia and Denies change in bowel habits Musc Denies myalgias, Denies arthralgias and Denies joint swelling Skin/Breast Denies lesions and Denies unusual bruising Neuro Denies vertigo, Denies dizziness, Denies headache(s) and Denies focal weakness Endo Denies fatigue Physical exam (Primary Care) Vital Signs: Last Vital Signs Pulse 67 11/30/23 12:58 BP 112/80 11/30/23 12:58 Pulse Ox 98 11/30/23 12:58 Oxygen Delivery Method Room Air 11/30/23 12:58 BMI result Body Mass Index 25.1 Tobacco/Smoking Status: Tobacco use Status Tobacco use date assessed 08/25/23 11/30/23 12:59 Patient Tobacco Use Status Never used Tobacco 11/30/23 12:59 e-Cigarette/Vaping Use Never Used 11/30/23 12:59 Thrive Assessment: Date of Thrive Assessment Date Thrive assessed 08/25/23 11/30/23 12:59 Const General: cooperative, healthy appearing and no acute distress Orientation/consciousness: oriented to person, oriented to place and oriented to time [facility] Head: Yes normal to inspection, Yes normocephalic and Yes atraumatic Mouth: Normal oral and palatal mucosa present and tongue normal Throat: Yes posterior oropharynx normal and Yes uvula midline Eyes General: appearance normal, both eyes and all related structures Neck Neck: Yes normal visual inspection, Yes full ROM and Yes no lymphadenopathy Thyroid: Thyroid normal Carotids: normal carotid upstroke Chest Chest palpation & inspection: normal inspection of the chest Resp Effort & Inspection: normal respiratory effort and able to speak in complete sentences Auscultation: clear to auscultation bilaterally Cardio Jugular venous distension: no JVD Palpation: normal PMI Rate: regular rate Rhythm: regular rhythm Heart sounds: S1 normal heart sound present and S2 normal heart sound present GI Inspection: Yes normal to inspection Palpation (GI): Soft to palpation and No hepatosplenomegaly present Auscultation: normal bowel sounds General: Yes no CVA tenderness Back/Spine/Pelvis Back: no CVA tenderness Skin General skin exam: no rashes or lesions noted Neuro General: oriented to person, oriented to place and oriented to time Extrem General: Yes normal to inspection and Yes full ROM Assessment and Plan Assessment & Plan (1) Physical exam: Code(s): Z00.00 - Encounter for general adult medical examination without abnormal findings Plan: do labs Coding Level of Care Code Est Pt Prev Care 18-39y(90501) Diagnoses Physical exam Z00.00
== END 2023-11-30 13:24 | disposition home or self-care (01) ==
PROVIDERS: PCP Internal Medicine; Visit Provider Internal Medicine
DX: Z00.00 Encounter for general adult medical examination without abnormal findings (principal)
CPT/HCPCS: 99395

== ENCOUNTER 2023-12-16 10:12 | Outpatient (REF) | payer OTHER, SELFPAY ==
[2023-12-16 13:40] LABS: MANUAL DIFF FLAG NO
[2023-12-16 13:44] LABS: Basophils Absolute Auto 0.1 X10*3/uL (0.0-0.2); Basophils Percent Auto 1.2 % (0-2); Eosinophils Absolute Auto 0.9 X10*3/uL (0.0-0.4); Eosinophils Percent Auto 9.5 % (0-4); Hemoglobin 12.3 g/dl (12.0-16.0); Imm Gran Abs Auto 0.08 X10*3/uL (0.00-0.03); Imm Gran Pct Auto 0.9 % (0.0-0.4); Lymphocytes Absolute Auto 2.3 X10*3/uL (1.2-4.9); Lymphocytes Percent Auto 25.8 % (20-40); Mean Corpuscular HGB Conc 32.4 g/dl (31.0-35.0); Mean Corpuscular Hemoglobin 27.2 pg (27.0-33.0); Mean Corpuscular Volume 84.1 fL (80.0-98.0); Mean Platelet Volume 11.8 fL (9.4-12.3); Monocytes Absolute Auto 0.7 X10*3/uL (0.1-1.2); Monocytes Percent Auto 8.2 % (2-11); Neutrophils Absolute Auto 4.9 x10*3/uL (2.0-8.3); Neutrophils Percent Auto 54.4 % (45-73); Platelet Count 308 X10*3/uL (160-400); Red Blood Count 4.52 X10*6/uL (4.20-5.50); Red Cell Distribution Width 13.6 % (11.0-16.0)
[2023-12-16 14:22] LABS: Alanine Aminotransferase 19 U/L (0-31); Albumin Level 4.5 g/dL (3.5-5.0); Alkaline Phosphatase 60 U/L (39-117); Anion Gap 14 (12-20); Aspartate Amino Transferase 24 U/L (5-31); Bilirubin Total 0.2 mg/dL (0.0-1.0); Blood Urea Nitrogen 17 mg/dL (9-16); Calcium 10.1 mg/dL (8.4-10.2); Carbon Dioxide 23 mmol/L (22-29); Chloride 104 mmol/L (96-108); Cholesterol 158 mg/dL (<200); Estimated Glomerular Filt Rate > 60; Glucose Fasting 83 mg/dL (60-99); HDL Cholesterol 61 mg/dL (>40); LDL Cholesterol Calculated 89 mg/dL (<100); Potassium 4.1 mmol/L (3.3-5.1); Sodium 137 mmol/L (135-145); Total Protein 8.1 g/dL (6.5-8.0); Triglycerides 43 mg/dL (<150)
[2023-12-16 14:23] LABS: Thyroid Stimulating Hormone 2.08 uIU/mL (0.32-4.0); Vitamin D 25-OH Total 17.4 ng/mL (>30)
== END 2023-12-16 10:13 | disposition home or self-care (01) ==
LOC: HO.HMGCLDS 10:12
PROVIDERS: PCP Internal Medicine; Visit Provider Internal Medicine
DX: Z13.9 Encounter for screening, unspecified (principal); E03.9 Hypothyroidism, unspecified; N28.9 Disorder of kidney and ureter, unspecified; E78.5 Hyperlipidemia, unspecified; D64.9 Anemia, unspecified
CPT/HCPCS: 36415; 80053; 80061; 82306; 84443; 85025

== ENCOUNTER 2023-12-23 14:08 | Outpatient (AMB) | payer OTHER, SELFPAY ==
--- NOTE | 2023-12-23 14:09 | MHC.OFFVIS ---
Intake Visit Reasons: TELE - Right Hand MRI Review Intake Note: Linda is a 23 year old right hand dominant female who presents today for an MRI review of the right hand. MR/MR hand RT wo con IMPRESSION: Unremarkable examination. Allergies doxycycline Allergy (Verified 12/03/23 08:58) Unknown HPI HPI TELE - Right Hand MRI Review: Details: Linda is a 23 year old right hand dominant female who presents today for an MRI review of the right hand. She describes continued pain in her dorsum of her right hand with activity around the house. [facility] Medical History Anxiety No known health problems Surgical History H/O wisdom tooth extraction Family History Mother No problems noted. Father No problems noted. 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 Assessment & Plan Assessment & Plan (1) Localized swelling on right hand: Code(s): R22.31 - Localized swelling, mass and lump, right upper limb Category: Medical Plan: This is a 23-year-old woman with a normal MRI of her right hand. And prior clinical exam and based on the MRI results I have no orthopedic intervention I would recommend. I discussed this with her and she would like a referral to pain management. Coding Level of Care Code Tele Est Pt Level 3 (75486) Diagnoses Localized swelling on right hand R22.31
== END 2023-12-23 14:25 | disposition home or self-care (01) ==
LOC: HO.HOS 14:08
PROVIDERS: PCP Internal Medicine; Visit Provider Orthopaedic Surgery
DX: R22.31 Localized swelling, mass and lump, right upper limb (principal)
CPT/HCPCS: G2012

== ENCOUNTER 2024-01-07 10:55 | Outpatient (AMB) | payer OTHER, SELFPAY ==
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
[2024-01-07 11:03] VITALS: BP 133/91; PULSE 95; BMI 25.6
== END 2024-01-07 11:56 | disposition home or self-care (01) ==
PROVIDERS: PCP Internal Medicine; Visit Provider Nurse Practitioner Family
DX: M79.641 Pain in right hand (principal); G90.519 Complex regional pain syndrome I of unspecified upper limb; M54.2 Cervicalgia; M47.812 Spondylosis without myelopathy or radiculopathy, cervical region; M62.838 Other muscle spasm
CPT/HCPCS: 99204

== ENCOUNTER 2024-01-10 13:24 | Outpatient (REF) | payer OTHER, SELFPAY ==
--- NOTE | ~2024-01-10 | XR_ITS ---
EXAMINATION: XR CERVICAL SPINE CLINICAL INFORMATION: Cervicalgia COMPARISON: None available. TECHNIQUE: 3 views of the cervical spine were obtained. FINDINGS: The odontoid is partially obscured on the open-mouth view. There are no prevertebral soft tissue or bony abnormalities demonstrated. No compression fractures or subluxations are identified. Alignment is maintained at the atlanto-axial articulation. The disc spaces are preserved. No endplate changes are seen. The prevertebral soft tissues are normal. There is straightening of the usual cervical lordosis which can be seen with muscle spasm or be due to patient positioning. XR/XR cervical spine 3V IMPRESSION: Straightening of the usual cervical lordosis which can be seen with muscle spasm or be due to patient positioning.
== END 2024-01-10 13:25 | disposition home or self-care (01) ==
LOC: HO.HMGCX 13:24
PROVIDERS: PCP Internal Medicine; Visit Provider Nurse Practitioner Family
DX: M47.812 Spondylosis without myelopathy or radiculopathy, cervical region (principal); M62.838 Other muscle spasm; M54.2 Cervicalgia
CPT/HCPCS: 72040

== ENCOUNTER 2024-01-26 09:38 | Outpatient (AMB) | payer OTHER, SELFPAY ==
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
[2024-01-26 09:41] VITALS: BP 108/62; PULSE 84; O2SAT 98; BMI 26.4
== END 2024-01-26 10:20 | disposition home or self-care (01) ==
PROVIDERS: PCP Internal Medicine; Visit Provider Student in an Organized Health Care Education/Training Program
DX: R76.8 Other specified abnormal immunological findings in serum (principal)
CPT/HCPCS: 99203

== ENCOUNTER 2024-03-29 16:00 | Outpatient (RCR) | payer OTHER, SELFPAY ==
--- NOTE | 2024-02-04 15:50 | MHC.PT.EP ---
[facility] [place] Office [place] [facility] [place] [facility] [address] Carlos Stovall [address] [phone] F: [phone] F: [phone] F: [phone] F: [phone] Physical Therapy Plan of Care Date of Evaluation: 02/02/24 Date of Surgery: Diagnosis: cervicalgia Assessment: Pt is a 24yo female with a 6 month h/o R sided upper back/arm pain, with recent bouts of shingles in same area. PT exam reveals significant postural deficits that may also lead to her symptoms. Skilled PT indicated to promote her ability to maintain more neutral cervicothoracic posture, improve her body mechanics, increase deep neck flexor endurance and periscap strength to maximize her functional mobility and return to work tasks. Pt in agreement with POC and is motivated to participate. Frequency and Duration: The patient will be seen 2x/week, x 4 weeks Short Term Goals: 1. In 2 weeks, patient will be able to achieve neutral cervicothoracic posture in standing. 2. In 2 weeks, patient will consistently perform her cervical stretching and postural exercises issued in HEP > 75% of the time. Assisted Goals: 1. In 4 weeks, improve DNF endurance to 20 seconds without use of accessory muscle use. 2. In 4 weeks, patient will report 50% reduction in headache intensity or frequency. 3. Improve NDI score >= 20% indicating improvement of function overall, and reduced pain. Treatment Plan: Modalities to reduce pain, spasms and effusion. Manual therapy to restore motion and function. Therapeutic exercise to improve strength and flexibility. Neuromuscular re-education for posture and balance. Therapeutic activities to return to functional activities of daily living. Electronically signed by: Bhumika Holliday PT, DPT Please sign and return to therapist. Thank you for your referral.
--- NOTE | 2024-04-04 09:45 | MHC.PT.DC ---
[facility] [place] Office [place] [facility] [place] [facility] [address] Carlos Stovall [address] [phone] F: [phone] F: [phone] F: [phone] F: [phone] Physical Therapy Discharge Report Diagnosis: cervicalgia Date of Surgery: Date of Evaluation: 02/02/24 Date of Discharge: 04/04/24 Treatments to Date: 11 Cancellations to Date: No Shows to Date: Discharge Status: Achieved Goals Improved Function Independent with HEP Discharge Summary: Patient came to 11 visits of PT. She had centralized her symptoms, improved her neck pain and ROM. She also improved in shoulder strength, postural awareness and functional adaptations when she returned to work in full. She missed her last appointment but had mentioned she was interested in starting OT soon and was ready for DC. She had an HEP to continue on her own and was happy with progress. I also educated her on additional conservative tx's if needed including acupuncture. DC to HEP. Electronically signed by: Laquita Mckoy, PT Please sign and return to therapist. Thank you for your referral.
== END 2024-04-04 09:46 | disposition home or self-care (01) ==
LOC: HO.PTCHIC 16:00
PROVIDERS: PCP Internal Medicine; Visit Provider Nurse Practitioner Family
DX: M54.2 Cervicalgia (principal); M79.641 Pain in right hand; G90.511 Complex regional pain syndrome I of right upper limb
CPT/HCPCS: 97012; 97110; 97140; 97162

== ENCOUNTER 2024-08-08 11:27 | Outpatient (AMB) | payer OTHER, SELFPAY ==
--- NOTE | 2024-08-08 11:32 | MHC.PC.OV ---
Vital Signs 08/08/24 11:33 Height 5 ft 2 in Weight 149 lb 8 oz BMI 27.3 BP 120/62 Blood Pressure Location Lt brachial Position Sitting Pulse 101 H Pulse Source Pulse Oximeter Pulse Oximetry (%) 98 Oxygen Delivery Method Room Air Intake Visit Reasons: Sleeping Issues Intake Note: Patient is here to follow up on Sleeping issues and fatigue. Requesting for blood work to check thyroid. Sweet Dough Mixer Required: No Licensed Psychologist: Not Required per policy Accompanied by: Self / Same As Patient Allergies doxycycline Allergy (Verified 08/08/24 11:33) Unknown Medication List - Last Reconciled 08/08/24 by Nathaniel Sun MD hydroxyzine HCl 25 mg PO BEDTIME ibuprofen 600 mg PO TID Tobacco use date assessed: 08/08/24 Dental Screening Dental Screen Date: 08/25/23 HPI Sleeping Issues HPI Details fatigue and weight gain for a few months PFSH Medical History Vertigo Right hand pain History of substance use Dizziness Headache Anxiety Surgical History H/O wisdom tooth extraction Family History Mother No problems noted. Father No problems noted. 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 Aric Jhaveri, Blossom Wilson, Rock Sandoval and colleagues, with an educational lety from [employer]. Review of Systems Const Denies chills, Denies headache(s) and Denies weight loss ENT Denies headache(s) Card Denies chest pain, Denies syncope, Denies irregular heart rhythm and Denies dyspnea Resp Denies chest congestion, Denies cough and Denies dyspnea GI Denies abdominal pain, Denies change in stool character, Denies nausea and Denies vomiting Musc Denies deformity and Denies joint swelling Neuro Denies syncope and Denies headache(s) Physical exam (Primary Care) Vital Signs: Last Vital Signs Pulse 101 H 08/08/24 11:33 BP 120/62 08/08/24 11:33 Pulse Ox 98 08/08/24 11:33 Oxygen Delivery Method Room Air 08/08/24 11:33 BMI result Body Mass Index 27.3 Tobacco/Smoking Status: Tobacco use Status Tobacco use date assessed 08/08/24 08/08/24 11:39 Patient Tobacco Use Status Never used Tobacco 08/08/24 11:39 e-Cigarette/Vaping Use Currently Using 08/08/24 11:39 Thrive Assessment: Date of Thrive Assessment Date Thrive assessed 08/25/23 08/08/24 11:39 Const General: cooperative, comfortable, no acute distress and alert Neck Neck: Yes no lymphadenopathy Thyroid: Thyroid normal Resp Effort & Inspection: normal respiratory effort Auscultation: clear to auscultation bilaterally Percussion: percussion normal Cardio Jugular venous distension: no JVD Palpation: normal PMI Rate: regular rate Rhythm: regular rhythm Heart sounds: S1 normal heart sound present and S2 normal heart sound present GI Inspection: Yes normal to inspection Palpation (GI): No hepatosplenomegaly present Skin General skin exam: no rashes or lesions noted Extrem General: Yes no clubbing, cyanosis or edema Coding Level of Care Code Est Pt Level 3 (63305) Diagnoses Fatigue R53.83 Assessment & Plan Assessment & Plan (1) Fatigue: Code(s): R53.83 - Other fatigue Category: Medical Plan: do labs Orders: Orders Lipid Panel Today Z13.220 - Encounter for screening for lipoid disorders Comprehensive [place]. Panel Fast Today Z13.9 - Encounter for screening, unspecified Complete Blood Count Auto Diff Today Z13.0 - Encounter for screening for diseases of the blood and blood-forming organs and certain disorders involving the immune mechanism
[2024-08-08 11:33] VITALS: BP 120/62; PULSE 101; O2SAT 98; BMI 27.3
== END 2024-08-08 13:40 | disposition home or self-care (01) ==
PROVIDERS: PCP Internal Medicine; Visit Provider Internal Medicine
DX: R53.83 Other fatigue (principal)

== ENCOUNTER 2024-08-14 12:07 | Outpatient (REF) | payer OTHER, SELFPAY ==
[2024-08-14 12:22] LABS: MANUAL DIFF FLAG NO
[2024-08-14 12:36] LABS: Basophils Absolute Auto 0.1 X10*3/uL (0.0-0.2); Basophils Percent Auto 0.9 % (0-2); Eosinophils Absolute Auto 0.8 X10*3/uL (0.0-0.4); Eosinophils Percent Auto 8.6 % (0-4); Hemoglobin 12.2 g/dl (12.0-16.0); Imm Gran Abs Auto 0.02 X10*3/uL (0.00-0.03); Imm Gran Pct Auto 0.2 % (0.0-0.4); Lymphocytes Absolute Auto 3.5 X10*3/uL (1.2-4.9); Lymphocytes Percent Auto 36.5 % (20-40); Mean Corpuscular Hemoglobin 26.6 pg (27.0-33.0); Mean Corpuscular Volume 80.8 fL (80.0-98.0); Mean Platelet Volume 10.2 fL (9.4-12.3); Monocytes Absolute Auto 0.5 X10*3/uL (0.1-1.2); Monocytes Percent Auto 5.3 % (2-11); Neutrophils Absolute Auto 4.6 x10*3/uL (2.0-8.3); Neutrophils Percent Auto 48.5 % (45-73); Platelet Count 342 X10*3/uL (160-400); Red Blood Count 4.58 X10*6/uL (4.20-5.50); Red Cell Distribution Width 13.7 % (11.0-16.0); White Blood Count 9.5 X10*3/uL (4.8-10.8)
[2024-08-14 13:27] LABS: Alanine Aminotransferase 22 U/L (0-31); Albumin Level 4.4 g/dL (3.5-5.0); Alkaline Phosphatase 71 U/L (39-117); Anion Gap 10 (12-20); Aspartate Amino Transferase 29 U/L (5-31); Bilirubin Total 0.3 mg/dL (0.0-1.0); Blood Urea Nitrogen 9 mg/dL (9-16); Calcium 9.2 mg/dL (8.4-10.2); Carbon Dioxide 26 mmol/L (22-29); Chloride 111 mmol/L (96-108); Cholesterol 129 mg/dL (<200); Estimated Glomerular Filt Rate > 60; Glucose Fasting 93 mg/dL (60-99); HDL Cholesterol 45 mg/dL (>40); LDL Cholesterol Calculated 73 mg/dL (<100); Potassium 3.8 mmol/L (3.3-5.1); Sodium 143 mmol/L (135-145); Total Protein 7.8 g/dL (6.5-8.0); Triglycerides 56 mg/dL (<150)
== END 2024-08-14 12:08 | disposition home or self-care (01) ==
LOC: HO.LAB 12:07
PROVIDERS: PCP Internal Medicine; Visit Provider Internal Medicine
DX: Z13.0 Encounter for screening for diseases of the blood and blood-forming organs and certain disorders involving the immune mechanism (principal); Z13.9 Encounter for screening, unspecified; Z13.220 Encounter for screening for lipoid disorders
CPT/HCPCS: 36415; 80053; 80061; 85025

== ENCOUNTER 2024-08-23 16:26 | Outpatient (REF) | payer OTHER, SELFPAY ==
[2024-08-23 16:44] LABS: MANUAL DIFF FLAG NO
[2024-08-23 17:09] LABS: Appearance Urine Clear; Color Urine Yellow; Glucose Urine UA Negative (Negative); Leukocyte Esterase Urine Negative (Negative); Nitrite Urine Negative (Negative); PH 6.5 (5.0-9.0); Specific Gravity - Urine 1.025 (1.005-1.025); UMIC TRIGGER UA YES; Urine Blood Trace (Negative); Urine Ketones Negative (Negative); Urine Protein Negative (Neg-Trace)
[2024-08-23 17:12] LABS: Bacteria Urine 2+ (None Seen); Hyaline Casts Urine 0-2 /LPF (0-2); Squamous Epithelial Cell Urine 0-2 /HPF (0-2)
[2024-08-23 17:12] LABS: Basophils Absolute Auto 0.1 X10*3/uL (0.0-0.2); Basophils Percent Auto 0.8 % (0-2); Eosinophils Absolute Auto 0.7 X10*3/uL (0.0-0.4); Eosinophils Percent Auto 6.1 % (0-4); Hematocrit 37.1 % (37.0-47.0); Hemoglobin 12.1 g/dl (12.0-16.0); Imm Gran Abs Auto 0.05 X10*3/uL (0.00-0.03); Imm Gran Pct Auto 0.4 % (0.0-0.4); Lymphocytes Percent Auto 34.5 % (20-40); Mean Corpuscular HGB Conc 32.6 g/dl (31.0-35.0); Mean Corpuscular Hemoglobin 26.5 pg (27.0-33.0); Mean Corpuscular Volume 81.2 fL (80.0-98.0); Mean Platelet Volume 10.6 fL (9.4-12.3); Monocytes Absolute Auto 0.8 X10*3/uL (0.1-1.2); Monocytes Percent Auto 6.8 % (2-11); Neutrophils Percent Auto 51.4 % (45-73); Platelet Count 373 X10*3/uL (160-400); Red Blood Count 4.57 X10*6/uL (4.20-5.50); White Blood Count 11.7 X10*3/uL (4.8-10.8)
[2024-08-23 17:39] LABS: Creatinine Urine 127.04 mg/dL; Total Protein Urine Random < 7 mg/dL (<12)
[2024-08-23 17:52] LABS: Alanine Aminotransferase 27 U/L (0-31); Albumin Level 4.6 g/dL (3.5-5.0); Alkaline Phosphatase 91 U/L (39-117); Anion Gap 9 (12-20); Aspartate Amino Transferase 28 U/L (5-31); Bilirubin Total 0.3 mg/dL (0.0-1.0); Blood Urea Nitrogen 14 mg/dL (9-16); C Reactive Protein 0.36 mg/dL (< or = 0.50); Calcium 9.7 mg/dL (8.4-10.2); Carbon Dioxide 28 mmol/L (22-29); Chloride 107 mmol/L (96-108); Estimated Glomerular Filt Rate > 60; Glucose Random 87 mg/dL (60-115); Sodium 140 mmol/L (135-145); Total Protein 8.2 g/dL (6.5-8.0)
[2024-08-23 17:59] LABS: Erythrocyte Sedimentation Rate 11 MM/HR (0-20); Thyroid Stimulating Hormone 1.12 uIU/mL (0.32-4.0)
[2024-08-24 21:53] LABS: Anti DNA DS Antibody 4 IU/mL; Antibody to SS-A Antigen <1.0 NEG AI (<1.0 NEG); Antibody to SS-B Antigen <1.0 NEG AI (<1.0 NEG); SM/Ribonucleoprotein Ab <1.0 NEG AI (<1.0 NEG); Smith Protein <1.0 NEG AI (<1.0 NEG)
[2024-08-24 22:28] LABS: Thyroglobulin Antibodies 7 IU/mL (< or = 1); Thyroid Peroxidase Antibodies 1 IU/mL (<9)
[2024-08-25 20:59] LABS: Cardiolipin IgG Ab <2.0 GPL-U/mL; Cardiolipin IgM Ab <2.0 MPL-U/mL
[2024-08-25 22:18] LABS: PTT (LAC) Screen 37 sec (<=40)
[2024-08-27 12:18] LABS: DNAds, Crithidia Antibody Negative (Negative)
[2024-08-28 16:09] LABS: Complement C3 173 mg/dL (83-193)
[2024-08-29 12:24] LABS: Anti Nuclear Antibody Screen POSITIVE (NEGATIVE)
[2024-09-01 00:49] LABS: Beta-2 Glycoprotein IgA <2.0 U/mL (<20.0); Beta-2 Glycoprotein IgG <2.0 U/mL (<20.0); Beta-2 Glycoprotein IgM <2.0 U/mL (<20.0)
== END 2024-08-23 16:27 | disposition home or self-care (01) ==
LOC: HO.LAB 16:26
PROVIDERS: PCP Internal Medicine; Visit Provider Student in an Organized Health Care Education/Training Program
DX: R76.8 Other specified abnormal immunological findings in serum (principal)
CPT/HCPCS: 36415; 80053; 81001; 82570; 84156; 84443; 85025; 85597; 85598; 85613; 85652; 85730; 86038; 86039; 86140; 86146; 86147; 86160; 86225; 86235; 86255; 86376; 86800

== ENCOUNTER 2024-09-09 00:47 | Emergency (ER) | payer OTHER, SELFPAY ==
--- NOTE | ~2024-09-09 | CT_ITS ---
CLINICAL HISTORY: fall CT Head WO Contrast COMPARISON: None FINDINGS: No acute intracranial hemorrhage. No evidence of acute infarction. No mass-effect or midline shift. No hydrocephalus. Trace fluid in the paranasal sinuses. Mucosal thickening in the maxillary sinuses. The mastoid air cells are clear. The visible orbits are normal. No acute fracture. Posterior midline scalp soft tissue injury near the vertex. IMPRESSION: No acute intracranial findings. Scalp soft tissue injury. This document has been electronically signed by: Kris Wyman MD on 09/09/2024 02:12:05
[2024-09-09 00:53] VITALS: BP 125/77; BP 128/76; PULSE 123; PULSE 126; RESP 18; TEMP 36.6; O2SAT 98; BMI 27.4
--- NOTE | 2024-09-09 01:01 | ECG_ITS ---
Test Reason : TACHYCARDIA Blood Pressure : */* mmHG Vent. Rate : 126 BPM Atrial Rate : 126 BPM P-R Int : 104 ms QRS Dur : 100 ms QT Int : 418 ms P-R-T Axes : * 44 53 degrees QTcB Int : 605 ms Sinus tachycardia with short TX Nonspecific T wave abnormality Abnormal ECG When compared with ECG of 04-Jun-2018 20:31, Premature ventricular complexes are no longer Present T wave inversion now evident in Anterior leads Referred By: Generic ED Physician Electronically Signed By: OSIRIS MILLIGAN
--- NOTE | 2024-09-09 01:23 | ED.FALL ---
HPI - Fall General Chief Complaint: Fall Stated Complaint: SLIPPED AND FELL/ ETOH Time Seen by Provider: 09/09/24 01:22 Source: patient Mode of arrival: EMS Limitations: no limitations History of Present Illness ED Provider: HPI Narrative: Patient has had few drinks earlier was slipped and fell on ice while running back to her home hit her back of the head to the ground with the swelling of the occipital area not on thinner patient's got days for few seconds Related Data Home Medications ?Medication ?Instructions ?Recorded ?Confirmed ibuprofen 600 mg tablet 600 mg PO TID 10/06/23 08/08/24 hydroxyzine HCl 25 mg tablet 25 mg PO BEDTIME 08/08/24 08/08/24 Allergies Allergy/AdvReac Type Severity Reaction Status Date / Time doxycycline Allergy Unknown Verified 09/09/24 00:59 Review of Systems Review of Systems: Yes all other systems are reviewed and are negative [facility] Past Medical History Medical History Vertigo Right hand pain History of substance use Dizziness Headache Anxiety Surgical History H/O wisdom tooth extraction Family History Family History Mother No problems noted. Father No problems noted. 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 Oriented X3. No acute distress. ETOH+ Eyes: PERRLA, No Nystagmus ENT: Pharynx normal. Oral Mucosa moist soft tissue swelling at the occipital area Neck: Normal inspection. Neck supple. No midline tenderness CVS: Normal heart rate and rhythm. Pulses normal. Respiratory: No respiratory distress. Equal air entry bilateral, no wheezing/rales/rhonchi Abdomen: Soft and nontender. Bowel sounds are present, no mass palpable, no CVA tenderness Skin: Skin warm and dry. Normal skin color. Normal skin turgor. Extremities: No lower extremity edema. No calf tenderness Neuro: Oriented X 3. No motor deficit. No sensory deficit.No cerebellar signs , cranial nerves II-XII intact patient ambulatory in his steady gait Medical Decision Making Lab Data MDM Lab Attestation statement: I reviewed the patient's lab results. Labs: Lab Results 09/09/24 Range/Units Unknown Urine Test NEGATIVE (NEGATIVE) Independent Interpretation I performed an independent interpretation of an: CT Scan Radiology Impression Discussion of test interpretation with radiology: I have reviewed the radiologist's reading. Radiologist Impression: NAD Discharge Plan Discharge Clinical Impression: Minor closed head injury Patient Disposition: Home, Self-Care Instructions: Head Injury (ED) Additional Instructions: Your CT scan of the head is negative for acute Care and cautions as advised Prescriptions: No Action ibuprofen 600 mg tablet 600 mg PO TID hydroxyzine HCl 25 mg tablet 25 mg PO BEDTIME Stand Alone Forms: Work/School Release Interventions: ED Discharge Assessment Last Done: 09/09/24 02:24 Discharge Date/Time: 09/09/24 02:25 Print Language: Dominican
[2024-09-09 01:35] LABS: UPreg QC Valid YES; Urine Pregnancy NEGATIVE (NEGATIVE)
[2024-09-09 02:24] VITALS: BP 124/71; PULSE 100; RESP 18; TEMP 36.6; O2SAT 99
== END 2024-09-09 02:25 | disposition home or self-care (01) ==
PROVIDERS: Emergency Provider Internal Medicine; PCP Internal Medicine
DX: S09.90XA Unspecified injury of head, initial encounter (principal); W00.0XXA Fall on same level due to ice and snow, initial encounter; F17.200 Nicotine dependence, unspecified, uncomplicated; Y93.02 Activity, running; Y92.410 Unspecified street and highway as the place of occurrence of the external cause; Y99.9 Unspecified external cause status
CPT/HCPCS: 70450; 81025; 93005; 99284; 99285

== ENCOUNTER → 2024-09-09 01:01 | Outpatient (BNV) | payer OTHER, SELFPAY | PROVIDERS: Emergency Provider Internal Medicine; PCP Internal Medicine; Visit Provider Internal Medicine | DX: R00.0 Tachycardia, unspecified (principal) | CPT/HCPCS: 93010 ==

== ENCOUNTER 2024-09-10 12:54 | Emergency (ER) | payer OTHER, SELFPAY ==
--- NOTE | ~2024-09-10 | CT_ITS ---
CLINICAL HISTORY: Fall CT cervical spine without contrast Comparison: None Findings: Vertebral alignment is within normal limits. No significant degenerative change. No acute fractures or dislocations. No acute findings on limited view of the intracranial contents. No cervical fluid collections or masses. Lung apices are clear. IMPRESSION: No acute findings. This document has been electronically signed by: Sheela Pan MD on 09/10/2024 15:34:11
--- NOTE | ~2024-09-10 | XR_ITS ---
CLINICAL HISTORY: fall 3 views thoracic spine Comparison: None Findings: Normal alignment. No acute fractures or dislocation. No significant degenerative change. IMPRESSION: No acute findings. This document has been electronically signed by: Sheela Pan MD on 09/10/2024 13:41:02
--- NOTE | ~2024-09-10 | XR_ITS ---
CLINICAL HISTORY: fall 3 view left elbow Comparison: None Findings: No acute fractures or dislocations. No significant loss of joint space, osteophytes, or erosions. No joint effusion. No radiopaque foreign body. IMPRESSION: 1. No acute findings This document has been electronically signed by: Sheela Pan MD on 09/10/2024 13:41:11
--- NOTE | ~2024-09-10 | XR_ITS ---
CLINICAL HISTORY: Fall 3 views lumbar spine Comparison: None Findings: Normal alignment. No acute fractures or dislocation. No significant degenerative change. IMPRESSION: No acute findings. This document has been electronically signed by: Sheela Pan MD on 09/10/2024 13:40:44
--- NOTE | ~2024-09-10 | CT_ITS ---
CLINICAL HISTORY: Fall CT head without contrast Comparison: CT/SR - CT HEAD/BRAIN WO IV CON - 09/09/24 01:33 EST Findings: No intra-axial mass, midline shift, hydrocephalus, or acute hemorrhage. No significant atrophy-like change or white matter disease. Mild bilateral maxillary sinus mucosal thickening. The orbits are within normal limits. There is no acute fracture. IMPRESSION: 1. No acute intracranial findings. This document has been electronically signed by: Sheela Pan MD on 09/10/2024 15:38:55
[2024-09-10 13:05] VITALS: BP 133/94; PULSE 75; RESP 16; TEMP 36.8; O2SAT 97; BMI 28.2
--- NOTE | 2024-09-10 13:15 | ED_ITS ---
HPI - General Adult General Chief complaint: Head Injury Stated complaint: head inj Time Seen by Provider: 09/10/24 14:31 Source: patient Mode of arrival: ambulatory Limitations: no limitations History of Present Illness ED Provider: AMANDA ROGERS PA-C HPI narrative: 24 year old female with pmhx significant for anxiety and heroin abuse presents to the ED today for evaluation s/p mechanical slip and fall 3 days ago. Reports slipping on black ice, falling backwards, landing on her. Reports striking the backside of her head. No LOC. Not on thinners. She was evaluated at [facility] [place] [place] ED yesterday with normal head scans. She was advised to return to the ED if she continued to have a headache, prompting her to return today. Reports waking this morning with posterior headache, radiating frontally and behind both eyes. Denies any vision changes. Denies N/V. She did not trial any OTC analgesia for headache [employer] WORK[employer]. Denies neck or back pain, chest pain. Related Data Home Medications ?Medication ?Instructions ?Recorded ?Confirmed ibuprofen 600 mg tablet 600 mg PO TID 10/06/23 09/14/24 Previous Rx's ?Medication ?Instructions ?Recorded lidocaine 5 % topical patch 1 patch topical DAILY #15 ea 09/10/24 (Lidoderm) Allergies Allergy/AdvReac Type Severity Reaction Status Date / Time doxycycline Allergy Unknown Verified 09/14/24 15:14 Review of Systems Review of Systems: Yes all other systems are reviewed and are negative [facility] Past Medical History Attestation statement: The following information was validated with the patient. Source: old records reviewed and nursing notes reviewed Medical History Vertigo Right hand pain History of substance use Dizziness Headache Anxiety Surgical History H/O wisdom tooth extraction Family History Family History Mother No problems noted. Father No problems noted. 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 patient came to the ED to be evaluated. images ordered. Reevaluation(s) Reevaluation #1: Head CT without intracranial bleed or skull fracture. Unchanged from head CT obtained yesterday. CT cervical spine unremarkable. No acute fracture or subluxation. X-ray thoracic and lumbar spine without acute fracture or notable degenerative changes. X-ray left elbow without noted fracture or effusion. > patient likely has a concussion. i educated her on concussion precautions. advised tylenol/ motrin for headaches. regarding her back and elbow pain, she was treated with both flexeril and toradol with improvement. her significant other at bedside will be driving her home. Patient has remained stable throughout ED visit today. Discussed worrisome signs and symptoms and when to return to the ED. All questions answered at this time. Patient is agreeable with disposition and stable for discharge. Medications Administered Discontinued Medications Generic Name Dose Route Start Last Admin Trade Name Trupti PRN Reason Stop Dose Admin Cyclobenzaprine HCl 10 mg 09/10/24 15:32 09/10/24 16:07 Cyclobenzaprine Hcl 10 Mg Tablet PO 09/10/24 15:33 10 mg ONCE ONE Administration Ketorolac Tromethamine 30 mg 09/10/24 15:32 09/10/24 16:07 Ketorolac Tromethamine 30 Mg/Ml Vial IM 09/10/24 15:33 30 mg ONCE ONE Administration Medical Decision Making Medical Decision Making MDM Narrative: 24 year old female with pmhx significant for anxiety and heroin abuse presents to the ED today for evaluation s/p mechanical slip and fall 3 days ago. Vitals notable for hypertension to 133/94. vitals are otherwise wnl. She is nontoxic- appearing and in no acute distress. Head is normocephalic, atraumatic. No palpable hematoma or skull fracture. No raccoon eyes or isaacs sign. Exam is nonfocal. A&O x3. No midline spinous tenderness or step-off deformity. There is bilateral lumbar paraspinal muscle tenderness to palpation without palpable spasm. Sensation and strength intact throughout. Left elbow with full ROM. No overlying swelling or skin changes. No tenderness to palpation along olecranon. 2+ radial/ulnar pulse intact. Differential diagnosis includes tension RIVERO vs migraine, concussion. Unlikely TBI, ICH or other bleed, skull fracture, basilar skull fracture. Concern for elbow fracture, contusion, effusion. Concern for lumbar sprain/ strain. Lower suspicion for fracture, subluxation. Unlikely cord compression, epidural abscess, cauda equina, Guillain-[place]. Plan for imaging, pain control, and re-evaluation. Differential Diagnosis Differential Diagnoses: The differential diagnosis associated with the presentation includes As above Admission/Observation Not indicated Independent Interpretation I performed an independent interpretation of an: Plain X-Ray and CT Scan Interpretation: CT head/brain without skull fracture or intracranial bleed CT cervical spine without fracture or subluxation X-rays of both thoracic and lumbar spine without fracture X-ray left elbow without fracture Radiology Impression Discussion of test interpretation with radiology: I have reviewed the radiologist's reading. Radiologist Impression: Procedure(s): XR elbow LT 2V Accession Number(s): [id number] cc: Roosevelt Rivera; Nathaniel Sun MD~ CLINICAL HISTORY: fall 3 view left elbow Comparison: None Findings: No acute fractures or dislocations. No significant loss of joint space, osteophytes, or erosions. No joint effusion. No radiopaque foreign body. IMPRESSION: 1. No acute findings This document has been electronically signed by: Sheela Pan MD on 09/10/2024 13:41:11 Procedure(s): XR thoracic spine 3V Accession Number(s): [id number] cc: Roosevelt Rivera; Nathaniel Sun MD~ CLINICAL HISTORY: fall 3 views thoracic spine Comparison: None Findings: Normal alignment. No acute fractures or dislocation. No significant degenerative change. IMPRESSION: No acute findings. This document has been electronically signed by: Sheela Pan MD on 09/10/2024 13:41:02 Procedure(s): XR lumbar spine 2-3V Accession Number(s): [id number] cc: Roosevelt Rivera; Nathaniel Sun MD~ CLINICAL HISTORY: Fall 3 views lumbar spine Comparison: None Findings: Normal alignment. No acute fractures or dislocation. No significant degenerative change. IMPRESSION: No acute findings. This document has been electronically signed by: Sheela Pan MD on 09/10/2024 13:40:44 Procedure(s): CT cervical spine wo IV con Accession Number(s): [id number] cc: Roosevelt Rivera; Nathaniel Sun MD~ Report Number: [id number]: Total DLP = 1022.00 mGy-cm CLINICAL HISTORY: Fall CT cervical spine without contrast Comparison: None Findings: Vertebral alignment is within normal limits. No significant degenerative change. No acute fractures or dislocations. No acute findings on limited view of the intracranial contents. No cervical fluid collections or masses. Lung apices are clear. IMPRESSION: No acute findings. This document has been electronically signed by: Sheela Pan MD on 09/10/2024 15:34:11 External Record Review External record reviewed: Inpatient record Prescription Management I considered prescription management with: Pain Medication Social Determinants Patient?s care significantly limited by Social Determinants of Health including: Other Social Determinant of Health Critical Care Time Critical Care Time Critical Care Time: No Discharge Plan Discharge Clinical Impression: Fall from slipping, Closed head injury Patient Disposition: Home, Self-Care Instructions: Head Injury (ED) Additional Instructions: You were evaluated in the ED today after a slip and fall. The CT scans of your head and neck are normal. The xrays of your back and left elbow are normal. Avoid bending, lifting, or twisting. Use ice several times per day for 20 minutes at a time for the next 48 hours and then change to heat. I recommend you take 600mg ibuprofen every 6 hours or tylenol 650mg every 6 hours as needed for pain. If needed, you can alternate these medications so that you take one medication every 3 hours. For example, at noon take ibuprofen, then at 3pm take tylenol, then at 6pm take ibuprofen. Flexeril is a muscle relaxer. Take this at night as it makes you drowsy. Do not drive, drink alcohol, or operate machinery while taking it. Lidoderm patches are numbing patches. Apply to painful areas. Please schedule an appointment for follow-up with your primary care provider this week for further evaluation of your symptoms. Return to the Emergency Department if you experience worsening back pain, difficulty walking, fevers, numbness, tingling, incontinence, or any other concerning symptoms. In the case of an emergency call 911. Prescriptions: New lidocaine [Lidoderm] 5 % adhesive patch,medicated 1 patch topical DAILY Qty: 15 0RF Rx Instructions: leave on most painful area for up to 12 hrs No Action ibuprofen 600 mg tablet 600 mg PO TID Referrals: Nathaniel Sun MD [Primary Care Provider] - Stand Alone Forms: Work/School Release Interventions: ED Discharge Assessment Last Done: 09/10/24 16:26 Discharge Date/Time: 09/10/24 16:27 Print Language: Maltese
[2024-09-10] MEDS: Cyclobenzaprine HCl 10 MG TABLET PO (16:07)
[2024-09-10] MEDS: Ketorolac Tromethamine 30 MG/ML VIAL IM (16:07)
[2024-09-10 16:26] VITALS: BP 133/94; PULSE 75; RESP 16; TEMP 36.8; O2SAT 97
== END 2024-09-10 16:27 | disposition home or self-care (01) ==
PROVIDERS: Emergency Provider Emergency Medicine; PCP Internal Medicine
DX: S09.90XA Unspecified injury of head, initial encounter (principal); S59.902A Unspecified injury of left elbow, initial encounter; R51.9 Headache, unspecified; M54.2 Cervicalgia; M54.50 Low back pain, unspecified; R07.89 Other chest pain; W00.0XXA Fall on same level due to ice and snow, initial encounter; Y93.9 Activity, unspecified; Y92.89 Other specified places as the place of occurrence of the external cause; Y99.8 Other external cause status; Z79.899 Other long term (current) drug therapy
CPT/HCPCS: 70450; 72072; 72100; 72125; 73070; 96372; 99283; 99284; J1885

== ENCOUNTER → 2024-09-14 15:09 | Outpatient (BNVA) | payer OTHER, SELFPAY | PROVIDERS: PCP Internal Medicine; Visit Provider Student in an Organized Health Care Education/Training Program | DX: R76.8 Other specified abnormal immunological findings in serum (principal) | CPT/HCPCS: 99212 ==

== ENCOUNTER 2024-09-26 07:48 | Outpatient (AMB) | payer OTHER, SELFPAY ==
--- NOTE | 2024-09-26 07:49 | A.OFFVIS_ITS ---
Vital Signs 09/26/24 07:50 Height 5 ft 2.5 in Weight 159 lb 6.307 oz BMI 28.7 BP 108/70 Blood Pressure Location Rt brachial Position Sitting Pulse 89 Pulse Source Pulse Oximeter Pulse Oximetry (%) 98 Oxygen Delivery Method Room Air Intake Visit Reasons: Other speci abnorm immunological findings in serum Intake Note: Patient present today for other speci abnorm immunological findings in serum. 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 Labs from 08/23/2024 showed normal TSH of 1.12. Thyroglobulin antibody only mildly elevated at 7, TPO antibodies normal at 1. Reports fatigue. Weight gain 30 lbs over a year. Chronic constipation. Reports eczematous patches on skin. No palpitations, does have some anxiety. She does have tremors. LMP: a week and half ago. Periods every month but varies in flow sometimes. Patient currently denies heat or cold intolerance, changes in appearance of eyes or vision changes, tremors, increased diaphoresis or dry skin. ? Patient denies any difficulty swallowing, pain on swallowing or voice changes or difficulty breathing. However she does feel anterior pressure on her neck sometimes when she is lying down. Patient denies any history of childhood neck radiation. Denies having ever used lithium, amiodarone or biotin supplements. Patient denies any family history of thyroid cancer. Grandmother had Graves disease. 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 Gets 8 hours of sleep. Review of systems Constitutional: no fevers, chills HEENT: no changes in vision Cardiac: No chest pain, discomfort or palpitations. Pulmonary: No SOB GI:No abdominal pain, no nausea or vomiting, no anorexia, no blood in stool : no burning micturition, dysuria or increase in urinary frequency Physical exam General: sitting comfortably in no acute distress HEENT: normocephalic/atraumatic, EOM intact, moist oral mucosa Neck: supple, thyroid gland is mildly more prominent and enlarged with a larger left side. Cardiac: normal heart sounds Pulm: normal breath sounds B/L, no added breath sounds Abd: not distended, no tenderness Extremities: no edema, no signs of myxedema, mild tremor noted Laboratory Tests 12/16/23 08/23/24 10:46 16:42 TSH 2.08 1.12 Thyroglobulin Antibody 7 H Thyroid Peroxidase Ab 1 PFSH Medical History Vertigo Right hand pain History of substance use Dizziness Headache Anxiety Surgical History H/O wisdom tooth extraction Family History Mother No problems noted. Father No problems noted. 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 Cognitive needs: No Hearing needs: No Vision needs: Yes Physical Exam Vital Signs: Last Vital Signs Pulse 89 09/26/24 07:50 BP 108/70 09/26/24 07:50 Pulse Ox 98 09/26/24 07:50 Oxygen Delivery Method Room Air 09/26/24 07:50 BMI result Body Mass Index 28.7 Assessment & Plan Assessment & Plan (1) Fatigue: Code(s): R53.83 - Other fatigue Category: Medical Qualifiers: Fatigue type: other Qualified Code(s): R53.83 - Other fatigue Plan: See below (2) Thyroglobulin antibody positive: Code(s): R76.8 - Other specified abnormal immunological findings in serum Category: Medical Plan: 24-year-old female with no family history of thyroid cancer with no personal history of head or neck radiation who is here today for nonspecific symptoms of fatigue and weight gain, with a positive thyroglobulin antibody with normal thyroid function from August 2024. She does have some anterior pressure sensation in her neck when she lays down flat. On my exam today I did notice fine tremors in her hands as well as thyromegaly noted. We will obtain a thyroi d ultrasound. While elevated thyroglobulin levels by themselves do not warrant further investigation, given some of her symptoms and exam, I will repeat her thyroid function with a TSH, free T4 and total T3 level. We will see her back in 6 weeks to discuss results. 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 Category: Medical Plan: See above Plan See above Orders: Orders Free T4 (Free Thyroxine) Today R53.83 - Other fatigue, R76.8 - Other specified abnormal immunological findings in serum Triiodothyronine T3 Total Today R53.83 - Other fatigue, R76.8 - Other specified abnormal immunological findings in serum US thyroid Today E01.0 - Iodine-deficiency related diffuse (endemic) goiter Thyroid Stimulating Hormone Today R53.83 - Other fatigue, R76.8 - Other specified abnormal immunological findings in serum Patient Instructions: Do thyroid US someone will call you to schedule this Do blood work Follow up in 6 weeks to discuss results Coding Level of Care Code New Pt Level 4 (40298) Diagnoses Other fatigue R53.83 Fatigue type: other Thyroglobulin antibody positive R76.8 Thyromegaly E01.0
[2024-09-26 07:50] VITALS: BP 108/70; PULSE 89; O2SAT 98; BMI 28.7
== END 2024-09-26 08:16 | disposition home or self-care (01) ==
PROVIDERS: PCP Internal Medicine; Visit Provider Student in an Organized Health Care Education/Training Program
DX: R53.83 Other fatigue (principal); R76.8 Other specified abnormal immunological findings in serum; E01.0 Iodine-deficiency related diffuse (endemic) goiter
CPT/HCPCS: 99204

== ENCOUNTER 2024-10-10 11:18 | Outpatient (REF) | payer OTHER, SELFPAY ==
--- NOTE | ~2024-10-10 | US_ITS ---
EXAMINATION: US THYROID CLINICAL INFORMATION: Iodine deficiency related goiter (endemic). COMPARISON: None available. TECHNIQUE: Linear transducer grayscale and color Doppler examination with attention to the region of the thyroid. FINDINGS: SIZE: Measurements of the thyroid lobes and nodules are given in sagittal, anteroposterior and transverse dimensions respectively. Right Thyroid Lobe: 4.6 x 1.2 x 1.2 cm, volume 3.3 mL. Parenchyma: The gland echotexture is normal. Thyroid vascularity is increased. Left Thyroid Lobe: 4.1 x 0.9 x 1.5 cm, volume 3.0 mL. Parenchyma: The gland echotexture is normal. Thyroid vascularity is increased.. Isthmus: 0.27 cm in maximum AP dimension. Estimated total number of nodules greater than or equal to 1 cm: 0/none. Design Intern nodules are described as follows: NODES: No lymphadenopathy is seen in the tissue surrounding the thyroid gland. US/US thyroid IMPRESSION: ACR TI-RADS 0 ACR TI-RADS RECOMMENDATION REFERENCE: Ultrasound-guided fine-needle aspiration, followup ultrasound, no further follow up. * TR1 (0 point) and TR2 (2 points): No FNA or follow up. * TR3 (3 points): FNA if more than or equal to 2.5 cm in maximum dimension, followup ultrasound in 1, 3 and 5 years if 1.5 to 2.4 cm in maximum dimension. * TR4 (4-6 points): FNA if more than or equal to 1.5 cm in maximum dimension, followup ultrasound in 1, 2, 3 and 5 years if 1 to 1.4 cm in maximum dimension. * TR5 (more than or equal to 7 points): FNA if more than or equal to 1 cm in maximum dimension, followup ultrasound every year for 5 years if 0.5 to 0.9 cm in maximum dimension. * TR3, TR4 or TR5 nodules that are below the size threshold for followup receive no follow up. Electronically signed by: Humberto Lamar MD 10/10/2024 03:42 PM [facility]
[2024-10-10 14:01] LABS: Free T4 (Free Thyroxine) 0.96 ng/dL (0.71-1.85); Thyroid Stimulating Hormone 2.05 uIU/mL (0.32-4.0)
[2024-10-11 07:03] LABS: Triiodothyronine T3 Total 130 ng/dL (76-181)
== END 2024-10-10 11:19 | disposition home or self-care (01) ==
LOC: HO.HMGCX 11:18
PROVIDERS: PCP Internal Medicine; Visit Provider Student in an Organized Health Care Education/Training Program
DX: R53.83 Other fatigue (principal); R76.8 Other specified abnormal immunological findings in serum; E01.0 Iodine-deficiency related diffuse (endemic) goiter
CPT/HCPCS: 36415; 76536; 84439; 84443; 84480